=== PATIENT | male | born 1960 | race Caucasian/White ===

== ENCOUNTER → 2018-01-02 | Outpatient (CLI) | payer BC ==
[~2018-01-02] MED LIST: HYDROCODONE BIT1 T11 PO; NKHM; PERCOCET 325 MG1 TA2 PO
== END | disposition home or self-care (01) ==
LOC: RAD 13:16
DX: J32.0 Chronic maxillary sinusitis (principal); J32.2 Chronic ethmoidal sinusitis

== ENCOUNTER 2021-01-25 19:58 | Emergency (ER) | payer OTHER ==
[~2021-01-25] VITALS: Ht 175.2 cm; Wt 81.6 kg
[2021-01-25] MEDS ORDERED: PERCOCET 5-3251 EACH PO (23:08)
== END 2021-01-26 00:06 | disposition home or self-care (01) ==
LOC: ED 19:58
DX: S92.061A Displaced intraarticular fracture of right calcaneus, initial encounter for closed fracture (principal); Z91.030 Bee allergy status; Z79.899 Other long term (current) drug therapy; Z98.890 Other specified postprocedural states; W01.0XXA Fall on same level from slipping, tripping and stumbling without subsequent striking against object, initial encounter; Y93.89 Activity, other specified; Y92.89 Other specified places as the place of occurrence of the external cause; Y99.8 Other external cause status

== ENCOUNTER → 2021-05-19 | Outpatient (CLI) | payer OTHER ==
[~2021-05-19] MED LIST changes: +PERCOCET 5-3251 EACH PO
== END | disposition home or self-care (01) ==
LOC: RAD 09:46
PROVIDERS: ATTEND Urology
DX: N20.0 Calculus of kidney (principal)

== ENCOUNTER 2024-01-03 13:54 | Emergency (ER) | payer BC ==
[~2024-01-03] VITALS: Ht 175.2 cm; Wt 82.6 kg
[2024-01-03] MEDS ORDERED: Glucagon Hydrochloride 1 MG SYR IV ONE (14:45)
== END 2024-01-03 17:37 | disposition home or self-care (01) ==
LOC: ED 13:54
DX: T18.128A Food in esophagus causing other injury, initial encounter (principal); I10 Essential (primary) hypertension; Z87.442 Personal history of urinary calculi; Z91.030 Bee allergy status; Z98.890 Other specified postprocedural states; W44.F3XA Food entering into or through a natural orifice, initial encounter; Y93.89 Activity, other specified; Y92.89 Other specified places as the place of occurrence of the external cause; Y99.8 Other external cause status